=== PATIENT | female | born 1935 | race Caucasian/White ===

== ENCOUNTER → 2016-07-17 | Outpatient (CLI) | payer BC ==
[~2016-07-17] MED LIST: ACT5 PO; ASPCH81 PO; CALCTAB5 PO; CHOL100010 PO; MULT-506 PO; PRLSR20 PO
--- NOTE | 2016-07-17 13:18 | MAMMOGRAPHY REPORT ---
BILATERAL DIGITAL SCREENING MAMMOGRAM WITH CAD: 07/17/2016 CLINICAL HISTORY: Routine screening. Patient has no complaints. TECHNIQUE: Current study was also evaluated with a Computer Aided Detection (CAD) system. Bilatera l CC and MLO views were obtained. COMPARISON: Comparison is made to exams dated: 07/04/2015 mammogram, 06/21/2014 mammogram, 05/03/2013 mammogram, 04/15/2012 mammogram, 11/23/2010 mammogram, and 10/12/2009 mammogram - [facility] enter. BREAST COMPOSITION: There are scattered areas of fibroglandular density in both breasts. FINDINGS: There is an obscured 1.4 cm mass in the right upper outer quadrant, for which spot compre ssion tomosynthesis views and possible breast ultrasound are recommended for further evaluation. The remainder of both breasts are stable compared to prior exams, without suspicious masses, calcifi cations, or areas of architectural distortion noted. IMPRESSION: ACR BI-RADS CATEGORY 0: INCOMPLETE EVALUATION: NEED ADDITIONAL IMAGING EVALUATION Right upper outer quadrant breast mass, for which additional imaging evaluation is recommended. The patient will be called to schedule an appointment. Approximately 10% of breast cancers are not detected with mammography. A negative mammographic repor t should not delay biopsy if a clinically suggestive mass is present. Cora Greenfield M.D. /:07/17/2016 10:23:36 Band Sawing Machine Operator: Krysten GONZALEZ)(Chai), [facility] letter sent: Addl Imaging 0 BI-RADS Code: ACR BI-RADS Category 0: Incomplete Evaluation: Need Additional Imaging Evaluation
== END | disposition home or self-care (01) ==
LOC: C.MAMM 09:38
PROVIDERS: ATTEND Obstetrics & Gynecology
DX: Z12.31 Encounter for screening mammogram for malignant neoplasm of breast (principal); N63 Unspecified lump in breast

== ENCOUNTER → 2016-07-26 | Outpatient (CLI) | payer BC ==
--- NOTE | 2016-07-26 16:30 | MAMMOGRAPHY REPORT ---
UNILATERAL RIGHT DIGITAL DIAGNOSTIC MAMMOGRAM TOMOSYNTHESIS AND TARGETED RIGHT ULTRASOUND: 07/26/2016 CLINICAL HISTORY: Callback from screening mammogram for right breast mass. TECHNIQUE: Breast tomosynthesis in addition to standard 2D mammography was performed. Spot [place] right CC and MLO 2-D and tomosynthesis images were obtained. COMPARISON: Comparison is made to exams dated: 07/17/2016 mammogram, 07/04/2015 mammogram, 06/21/2014 mammogram, 05/03/2013 mammogram, 04/15/2012 mammogram, and 11/23/2010 mammogram - [facility]. BREAST COMPOSITION: There are scattered areas of fibroglandular density in the right breast. FINDINGS: Spot compression views of the right breast demonstrate a persistent oval partially circum scribed and partially obscured 1.5 cm mass in the right upper outer quadrant. Targeted ultrasound was performed of the right upper outer quadrant in the region of the mammographi c mass. In the right breast at 11:00 periareolar region, there is an oval anechoic circumscribed ma ss which measures 1.3 x 0.7 x 1.2 cm. This corresponds with the mammographic mass and is consistent with a benign simple cyst. IMPRESSION: ACR BI-RADS CATEGORY 2: BENIGN, TARGETED ULTRASOUND ACR BI-RADS CATEGORY 2: BENIGN The mammographic mass corresponds with a benign 1.3 cm simple cyst in the right breast at 11:00 on u ltrasound. There is no mammographic or targeted sonographic evidence of malignancy. A 1 year screen ing mammogram is recommended. The patient has been verbally notified of the results. Approximately 10% of breast cancers are not detected with mammography. A negative mammographic repor t should not delay biopsy if a clinically suggestive mass is present. Cora Greenfield M.D. /:07/26/2016 14:10:05 Reliability Technologist: Maribell OWENS(Joe)(Chai), [facility] letter sent: Normal 1/2 BI-RADS Code: ACR BI-RADS Category 2: Benign Ultrasound BI-RADS: ACR BI-RADS Category 2: Benign
== END | disposition home or self-care (01) ==
LOC: C.MAMM 13:46
PROVIDERS: ATTEND Obstetrics & Gynecology
DX: N60.01 Solitary cyst of right breast (principal)

== ENCOUNTER → 2016-10-23 | Outpatient (CLI) | payer BC ==
[2016-10-23 13:54] LABS: LYME DISEASE AB IGG NEG (NEG)
[2016-10-23 13:55] LABS: LYME DISEASE AB IGM NEG (NEG)
== END | disposition home or self-care (01) ==
LOC: C.LAB1850 10:59
PROVIDERS: ATTEND Family Medicine
DX: R21 Rash and other nonspecific skin eruption (principal)

== ENCOUNTER → 2017-04-11 | Outpatient (CLI) | payer BC ==
--- NOTE | 2017-04-11 10:13 | DIAGNOSTIC IMAGING REPORT ---
BILATERAL CAROTID DOPPLER STUDY HISTORY: BILATERAL CAROTID BRUITS COMPARISON: None. TECHNIQUE: Real-time, grayscale, and color Doppler sonography of the carotid arteries was performed. Imaging reviewed in the transverse and longitudinal planes. All measurements were calculated based on NASCET criteria. FINDINGS: Antegrade flow is seen in the bilateral vertebral arteries. The brachial pressures are hemodynamically similar but elevated up to 168/59. The peak systolic velocity within the right external carotid artery was 178 cm/s and the left external carotid artery was 82 cm/s. However, there is no stenosis provided on the images. The peak systolic velocity within the right ICA is 164 cm/s. The right systolic ratio is 1.1. The peak systolic velocity within the left ICA is 134 cm/s. The left systolic ratio is 1.4. IMPRESSION: No hemodynamically significant stenosis seen within the carotid arteries. Hypertension as described above resulting in the elevated velocities of the carotid arteries. Electronically signed by: Nikhil Frederick M.D. 04/11/2017 10:12 AM Dictated Date/Time: 04/11/2017 10:09 AM
--- NOTE | 2017-04-11 10:43 | DIAGNOSTIC IMAGING REPORT ---
TWO VIEW CHEST CLINICAL HISTORY: +PPD. FINDINGS: PA and lateral chest radiographs are compared to study dated 06/14/2010. The cardiomediastinal silhouette is unremarkable. Atherosclerotic calcification is noted in the thoracic aorta. Chronic interstitial thickening is similar to previous. No airspace consolidation or pleural effusion is identified. There is no pneumothorax. The skeletal structures are osteopenic. Degenerative change and S-shaped thoracolumbar scoliosis are identified in the spine. There is also mild thoracic hyperkyphosis. IMPRESSION: No active disease in the chest. Electronically signed by: Last Molina M.D. 04/11/2017 10:41 AM Dictated Date/Time: 04/11/2017 10:39 AM
[2017-04-11 12:36] LABS: HEMATOCRIT 41.6 % (37-47); HEMOGLOBIN 13.8 g/dL (12.0-16.0); MEAN CELL VOLUME 89.1 fL (80-100); MEAN CORPUSCULAR HEMOGLOBIN 29.6 pg (25-34); MEAN CORPUSCULAR HGB CONC 33.2 g/dl (32-36); MEAN PLATELET VOLUME 11.1 fL (7.4-10.4); PLATELET COUNT 297 K/uL (130-400); RED CELL DISTRIBUTION WIDTH SD 45.6 fL (36.4-46.3); WHITE BLOOD COUNT 6.28 K/uL (4.8-10.8)
[2017-04-11 12:46] LABS: ALBUMIN 3.6 gm/dl (3.4-5.0); ALT/SGPT 23 U/L (12-78); BLOOD UREA NITROGEN 21 mg/dl (7-18); CALCIUM 9.3 mg/dl (8.5-10.1); CARBON DIOXIDE 30 mmol/L (21-32); GLUCOSE 89 mg/dl (70-99); POTASSIUM 4.2 mmol/L (3.5-5.1); SODIUM 143 mmol/L (136-145)
[2017-04-11 12:57] LABS: ALKALINE PHOSPHATASE 97 U/L (45-117); AST/SGOT 20 U/L (15-37); CHOLESTEROL 169 mg/dl (0-200); LDL CHOLESTEROL CALCULATED 85 mg/dl; TOTAL PROTEIN 7.1 gm/dl (6.4-8.2)
== END | disposition home or self-care (01) ==
LOC: C.ULTR 09:05
PROVIDERS: ATTEND Internal Medicine
DX: R53.83 Other fatigue (principal); E78.00 Pure hypercholesterolemia, unspecified

== ENCOUNTER → 2017-05-05 | Outpatient (CLI) | payer BC | END | disposition home or self-care (01) | LOC: C.MAMM 12:30 | PROVIDERS: ATTEND Internal Medicine | DX: M85.852 Other specified disorders of bone density and structure, left thigh (principal); M85.88 Other specified disorders of bone density and structure, other site ==

== ENCOUNTER → 2017-07-14 | Day surgery (SDC) | payer BC ==
[2017-07-03 16:29] VITALS: BMI 25.0
[~2017-07-14] VITALS: Ht 160 cm; Wt 65.5 kg
[~2017-07-14] MED LIST changes: -ACT5 PO; +ASCO500T3 PO; -ASPCH81 PO; -CALCTAB5 PO; -CHOL100010 PO; +CHOL200010 PO; +GLUC1CAP35 PO; +LIDOCAINE HCL 2% 2 ML VIAL (20MG/ML) ONE; +MAGN250T9 PO; +OMEP40CA41 PO; -PRLSR20 PO; +PROPOFOL IV EMULSION 10 MG/ML 20 ML VIAL ONE; +SALI0.657 NAE; +SODIUM CHLORIDE 0.9% 500ML 500 ML IV ONE
[2017-07-14 13:56] VITALS: Ht 160 cm; Wt 65.5 kg
--- NOTE | 2017-07-14 14:29 | Endo History and Physical ---
History & Physical Date of Service: July 14, 2017. Chief Complaint: CHRONIC GERD Referring Physician: DR. CARR History of Present Illness 82 yo CF who presents for EGD secondary to chronic GERD. Past Surgical History Hx Cardiac Surgery: No Hx Internal Defibrillator: No Hx Pacemaker: No Hx Abdominal Surgery: No Hx of Implantable Prosthesis: No Hx Post-Op Nausea and Vomiting: No Hx Cancer Surgery: No Hx Thoracic Surgery: No Hx Orthopedic: No Hx Urinary Tract Surgery: No Family History Polyp Social History Smoking Status: Never Smoker Hx Substance Use: No Hx Alcohol Use: No Allergies Coded Allergies: Adhesives (Verified Allergy, Unknown, RASH, 07/03/17) Barley (Verified Allergy, Unknown, HEADACHE, 07/03/17) Povidone Iodine (Verified Allergy, Unknown, RASH, 07/03/17) Codeine (Unverified Adverse Reaction, Mild, HEADACHE AND STOMACH ACHE, ) Uncoded Allergies: CORNSTARCH, CORN SYRUP (Allergy, Unknown, HEADACHE, 07/03/17) RED WINE (Allergy, Unknown, HEADACHE, 07/03/17) SCALLOPS (Allergy, Unknown, VOMITING, 07/03/17) Current Medications Reported Home Medications Medications Dose Route/Sig Max Daily Dose Days Date Category [place] (Saline) 0.65 % Spr 1 [place] MINGO Q8 PRN 07/03/17 Reported Magnesium 250 Mg Tab 250 Mg PO QPM 07/03/17 Reported Vitamin C (Ascorbic Acid) 500 Mg Tab 500 Mg PO QAM 07/03/17 Reported Glucosamine Chondroitin (Iqqwslydzst-Bcbydjarbut-Kzh C-) 1 Cap Cap 1 Cap PO QAM 07/03/17 Reported Vitamin D (Cholecalciferol) 2,000 Unit Cap 2,000 Units PO QAM 07/03/17 Reported Prilosec (Omeprazole) 40 Mg Cap 40 Mg PO QAM 07/03/17 Reported Multivitamin (Multivitamins) Tab 1 Tab PO DAILY 08/27/08 Reported Vital Signs Weight (Kilograms): 65.45 Height (Feet): 5 Height (Inches): 3 Date Time Temp Pulse Resp B/P (MAP) Pulse Ox O2 Delivery O2 Flow Rate FiO2 07/14/17 14:07 36.6 77 16 176/64 (101) 99 Room Air Physical Exam General Appearance: WD/WN, no apparent distress Respiratory/Chest: Auscultation: breath sounds normal Cardiovascular: Heart Auscultation: RRR Abdomen: Bowel Sounds: normal Inspection & Palpation: soft, non-distended, no tenderness, guarding & rebound Assessment and Plan Assessment: 82 yo CF who presents for EGD secondary to chronic GERD. Plan: Proceed with EGD.
--- NOTE | 2017-07-14 15:41 | Anesthesiology Progress Note ---
Anesthesia Post Op Note Date & Time July 14, 2017 at 15:41 Vital Signs Pain Intensity: 0 Vital Signs Past 12 Hours Date Time Temp Pulse Resp B/P (MAP) Pulse Ox O2 Delivery O2 Flow Rate FiO2 07/14/17 15:27 96 12 135/106 (116) 95 Room Air 07/14/17 14:07 36.6 77 16 176/64 (101) 99 Room Air Notes Mental Status: alert / awake / arousable, participated in evaluation Pt Amnestic to Procedure: Yes Nausea / Vomiting: adequately controlled Pain: adequately controlled Airway Patency, RR, SpO2: stable & adequate BP & HR: stable & adequate Hydration State: stable & adequate Anesthetic Complications: no major complications apparent repeat BP was 156/70
--- NOTE | 2017-07-14 15:47 | GI REPORT ---
Patient Name: Sana Gilmore Procedure Date: 07/14/2017 2:33 PM Date of : 1935 Admit Type: Outpatient Age: 82 Gender: Female Attending MD: Niles Walters DO Procedure: Upper GI endoscopy Providers: Niles Wlaters DO Referring MD: Krysten Han M.d. Indications: Gastro-esophageal reflux disease Medicines: Monitored Anesthesia Care Complications: No immediate complications. Estimated Blood Loss: Estimated blood loss: none. Procedure: Pre-Anesthesia Assessment: - Prior to the procedure, a History and Physical was performed, and patient medications and allergies were reviewed. The patient's tolerance of previous anesthesia was also reviewed. The risks and benefits of the procedure and the sedation options and risks were discussed with the patient. All questions were answered, and informed consent was obtained. Prior Anticoagulants: The patient has taken no previous anticoagulant or antiplatelet agents. ASA Grade Assessment: II - A patient with mild systemic disease. After reviewing the risks and benefits, the patient was deemed in satisfactory condition to undergo the procedure. After obtaining informed consent, the endoscope was passed under direct vision. Throughout the procedure, the patient's blood pressure, pulse, and oxygen saturations were monitored continuously. The scope was introduced through the mouth, and advanced to the second part of duodenum. The upper GI endoscopy was accomplished without difficulty. The patient tolerated the procedure well. Findings: A mild Schatzki ring (acquired) was found at the gastroesophageal junction. A TTS dilator was passed through the scope. Dilation with an 18-19-20 mm balloon dilator was performed to 20 mm. The dilation site was examined and showed moderate improvement in luminal narrowing. A small hiatal hernia was present. Multiple 6 mm sessile polyps with no stigmata of recent bleeding were found in the gastric fundus. Biopsies were taken with a cold forceps for histology. The examined duodenum was normal. Impression: - Mild Schatzki ring. Dilated. - Small hiatal hernia. - Multiple gastric polyps. Biopsied. - Normal examined duodenum. Recommendation: - Resume previous diet. - Use Protonix (pantoprazole) 40 mg PO daily. - Await pathology results. - Return to primary care physician as previously scheduled. Niles Walters DO 07/14/2017 3:29:53 PM This report has been signed electronically. Note Initiated On: 07/14/2017 2:33 PM Number of Addenda: 0 I attest to the content of the Intraoperative Record and orders documented therein, exceptions below {[id number]}
[2017-07-14 15:57] VITALS: BP 176/62; PULSE 86; O2SAT 96
--- NOTE | 2017-07-14 16:00 | Discharge Instructions ---
Endoscopy Patient Instructions Date / Procedure(s) Performed July 14, 2017. EGD Allergy Information Coded Allergies: Adhesives (Verified Allergy, Unknown, RASH, 07/03/17) Barley (Verified Allergy, Unknown, HEADACHE, 07/03/17) Povidone Iodine (Verified Allergy, Unknown, RASH, 07/03/17) Codeine (Unverified Adverse Reaction, Mild, HEADACHE AND STOMACH ACHE, ) Uncoded Allergies: CORNSTARCH, CORN SYRUP (Allergy, Unknown, HEADACHE, 07/03/17) RED WINE (Allergy, Unknown, HEADACHE, 07/03/17) SCALLOPS (Allergy, Unknown, VOMITING, 07/03/17) Discharge Date / Findings July 14, 2017. Gastric polyps with biopsies Hiatal hernia Schatzki's Ring s/p dilation Medication Instructions OK to resume all medications today as prescribed Reported Home Medications Medications Dose Route/Sig Max Daily Dose Days Date Category [place] (Saline) 0.65 % Spr 1 [place] MINGO Q8 PRN 07/03/17 Reported Magnesium 250 Mg Tab 250 Mg PO QPM 07/03/17 Reported Vitamin C (Ascorbic Acid) 500 Mg Tab 500 Mg PO QAM 07/03/17 Reported Glucosamine Chondroitin (Xytrpyygoys-Tcqynaprtxy-Tlg C-) 1 Cap Cap 1 Cap PO QAM 07/03/17 Reported Vitamin D (Cholecalciferol) 2,000 Unit Cap 2,000 Units PO QAM 07/03/17 Reported Prilosec (Omeprazole) 40 Mg Cap 40 Mg PO QAM 07/03/17 Reported Multivitamin (Multivitamins) Tab 1 Tab PO DAILY 08/27/08 Reported Provider Instructions Activity Restrictions - No exercising or heavy lifting for 24 hours. - Do not drink alcohol the day of the procedure. - Do not drive a car or operate machinery until the day after the procedure. - Do not make any important decisions or sign important papers in 24 hours after the procedure. Following Day: - Return to full activity which may include returning to work/school. Diet Start your diet with liquids and light foods (jello, soup, juice, toast). Then eat your usual diet if not nauseated. Treatment For Common After Affects For mild abdominal pain, bloating, or excessive gas: - Rest - Eat lightly - Lie on right side Follow-Up Information Follow-up with DR. BRUNO as scheduled Anesthesia Information What You Should Know You have had a procedure that required some medicine to reduce anxiety and discomfort. This treatment is called moderate sedation. After receiving the treatment, you may be sleepy, but you will be able to breathe on your own. The effects of the treatment may last for several hours. Follow these instructions along with Activity/Diet recommendations noted above: * Do NOT do anything where dizziness or clumsiness would be dangerous. * Rest quietly at home today, then you can be up and about tomorrow. * Have a responsible person stay with you the rest of today. * You may have had an I.V. today. If so, you may take the dressing off later today. Recommendations Call your doctor if: * Trouble breathing * Continuous vomiting for more than 24 hours * Temperature above 101 degrees * Severe abdominal pain or bloating * Pain not relieved by pain medicine ordered * There is increased drainage or redness from any incision * A large amount of rectal bleeding greater than 2-3 tablespoons. (If you had a polyp/s removed or have hemorrhoids, a small amount of blood - from the rectum is to be expected.) * You have any unanswered questions or concerns. IN THE EVENT OF A SERIOUS EMERGENCY, GO TO THE NEAREST EMERGENCY ROOM Your discharge instructions were prepared by provider Niles Walters. Patient Instructions Signature Page Sana Gilmore Patient (or Guardian) Signature/Date: I have read and understand the instructions given to me by my caregivers. Caregiver/RN/Doctor Signature/Date: The above-named patient and/or guardian has received patient instructions on this date. + Original Patient Signature Page (only) stays with chart. Please make copy for patient.
== END | disposition home or self-care (01) ==
LOC: C.GI 13:30
PROVIDERS: ATTEND Internal Medicine
DX: K21.9 Gastro-esophageal reflux disease without esophagitis (principal); K22.2 Esophageal obstruction; K44.9 Diaphragmatic hernia without obstruction or gangrene; K31.7 Polyp of stomach and duodenum; Z98.41 Cataract extraction status, right eye; Z98.42 Cataract extraction status, left eye; Z85.828 Personal history of other malignant neoplasm of skin; Z83.71 Family history of colonic polyps; Z88.5 Allergy status to narcotic agent; Z91.018 Allergy to other foods; Z91.013 Allergy to seafood; Z90.89 Acquired absence of other organs